=== PATIENT | male | born 1995 | race Caucasian/White ===

== ENCOUNTER 2019-09-26 18:03 | Emergency (ER) | payer OTHER ==
[~2019-09-26] VITALS: Ht 162.6 cm; Wt 59.0 kg
[2019-09-26 18:24] VITALS: BP 157/103
--- NOTE | 2019-09-26 18:30 | NUR ---
C/O LEFT RIB PAIN SINCE THURSDAY, DENIES INJURY OR TRAUMA. PATIENT A/OX4, BREATHING EVEN AND UNLABORED, NO SOB NOTED. NEEDS ATTENDED. KEPT COMFORTABLE.
== END 2019-09-26 18:39 | disposition home or self-care (01) ==
LOC: ER 18:10
DX: K59.00 Constipation, unspecified (principal); R10.32 Left lower quadrant pain

== ENCOUNTER 2019-10-08 16:53 | Emergency (ER) | payer OTHER ==
[~2019-10-08] VITALS: Ht 182.9 cm; Wt 61.2 kg
[2019-10-08 17:00] VITALS: BP 161/96
--- NOTE | 2019-10-08 17:09 | NUR ---
[employer] AT BEDSIDE FOR EVAL.
--- NOTE | 2019-10-08 17:40 | NUR ---
[employer] SUPERVISOR AT BEDSIDE FOR XRAY.
--- NOTE | 2019-10-08 18:21 | NUR ---
Patient discharged to home in stable condition. Written and verbal after care instructions given. Patient verbalizes understanding of instruction.
== END 2019-10-08 18:22 | disposition home or self-care (01) ==
LOC: ER 16:57
DX: S90.32XA Contusion of left foot, initial encounter (principal); V03.90XA Pedestrian on foot injured in collision with car, pick-up truck or van, unspecified whether traffic or nontraffic accident, initial encounter; Y93.89 Activity, other specified; Y92.89 Other specified places as the place of occurrence of the external cause; Y99.8 Other external cause status
CPT/HCPCS: 73630-TC

== ENCOUNTER 2020-08-18 13:15 | Emergency (ER) | payer OTHER ==
[~2020-08-18] VITALS: Ht 167.6 cm; Wt 54.4 kg
[2020-08-18 13:21] VITALS: BP 130/91
--- NOTE | 2020-08-18 13:22 | NUR ---
AT [facility] FOR EVAL.
--- NOTE | 2020-08-18 13:49 | NUR ---
Patient discharged to home in stable condition. Written and verbal after care instructions given. Patient verbalizes understanding of instruction.
== END 2020-08-18 13:49 | disposition home or self-care (01) ==
LOC: ER 13:21
DX: R21 Rash and other nonspecific skin eruption (principal)

== ENCOUNTER 2021-03-07 13:07 | Emergency (ER) | payer OTHER ==
[~2021-03-07] VITALS: Ht 167.6 cm; Wt 59.0 kg
[2021-03-07 13:15] VITALS: BP 138/83
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
[2021-03-07] MEDS ORDERED: AMOX-430 PO (13:21)
--- NOTE | 2021-03-07 13:27 | NUR ---
Patient discharged to home in stable condition. Written and verbal after care instructions given. Patient verbalizes understanding of instruction. Patient left ER in stable condition.
== END 2021-03-07 13:27 | disposition home or self-care (01) ==
LOC: ER 13:12
DX: S50.12XA Contusion of left forearm, initial encounter (principal); W50.3XXA Accidental bite by another person, initial encounter; Y93.89 Activity, other specified; Y92.89 Other specified places as the place of occurrence of the external cause; Y99.8 Other external cause status